=== PATIENT | male | born 1980 | race Two or more races ===

== ENCOUNTER 2019-09-22 23:46 | Emergency (ER) | payer SELFPAY ==
[2019-09-23 01:43] LABS: APPEARANCE,URINE CLEAR; BILIRUBIN,URINE NEGATIVE (NEGATIVE); COLOR,URINE YELLOW; GLUCOSE, URINE NEGATIVE (NEGATIVE); KETONES,URINE NEGATIVE (NEGATIVE); LEUKOCYTE ESTERASE,URINE NEGATIVE (NEGATIVE); NITRITE,URINE NEGATIVE (NEGATIVE); PROTEIN,URINE NEGATIVE (NEGATIVE); URINE SPECIFIC GRAVITY 1.014; UROBILINOGEN,URINE NEGATIVE mg/dL (<2.0)
[2019-09-23] MEDS ORDERED: NAPROXEN 250 MG TABLET PO ONE (02:02)
--- NOTE | 2019-09-23 02:33 | ER Document Report ---
Entered by TELMA MEDELLIN SCRIBE 09/23/19 0213 Acting as scribe for:SWATHI MUSTAFA DO ED GI/ - General Chief Complaint: Groin Pain Stated Complaint: GROIN PAIN/FLANK PAIN/PAIN URINATING Time Seen by Provider: 09/23/19 01:36 Primary Care Provider: RADHA NOVOA MD [CHRIS SONI] - Follow up as needed Mode of Arrival: Ambulatory Information source: Patient, Emergency Med Personnel Notes: This 38 year old male patient with no significant past medical history presents to the ED today with complaints of bilateral groin pain for the past x1 month that has been worse for the past x2 days. Via patient access, patient states that the pain radiated to his lower back and rates his pain 5/5. Patient also reports urinary frequency, but denies hematuria, dysuria, or darker-colored urine, history of kidney stones. Patient states the pain is exacerbated when he strains to defecate or cough. Patient states that he is concerned about his p rostate due to his age. Patient also reports dry throat and hearing a soft echo. Patient notes that he does heavy lifting in his job. Patient denies fever. TRAVEL OUTSIDE OF THE [place] IN LAST 30 DAYS: No - Related Data Allergies/Adverse Reactions: No Known Allergies Allergy (Unverified 09/23/19 01:03) Past Medical History - General Information source: Patient - Social History Smoking Status: Never Smoker Cigarette use (# per day): No Chew tobacco use (# tins/day): No Smoking Education Provided: No Frequency of alcohol use: None Drug Abuse: None Family History: Reviewed & Not Pertinent Patient has suicidal ideation: No Patient has homicidal ideation: No - Medical History Medical History: Negative Past Surgical History: Reports: None Review of Systems - Review of Systems Constitutional: See HPI. denies: Fever EENT: See HPI, Other - Dry throat Cardiovascular: No symptoms reported Respiratory: No symptoms reported Gastrointestinal: No symptoms reported Genitourinary: See HPI, Frequency. denies: Burning, Dysuria, Hematuria Male Genitourinary: See HPI, Other - Bilateral groin pain. denies: Testicular pain Musculoskeletal: See HPI, Back pain Skin: No symptoms reported Hematologic/Lymphatic: No symptoms reported Neurological/Psychological: No symptoms reported -: Yes All other systems reviewed and negative Physical Exam - Vital signs Vitals: Temp Pulse Resp BP Pulse Ox 98.3 F 85 16 130/82 H 97 09/22/19 23:51 09/22/19 23:51 09/22/19 23:51 09/22/19 23:51 09/22/19 23:51 - General General appearance: Appears well, Alert In distress: None - HEENT Head: Normocephalic, Atraumatic Eyes: Normal Pupils: PERRL - Respiratory Respiratory status: No respiratory distress Chest status: Nontender Breath sounds: Normal Chest palpation: Normal - Cardiovascular Rhythm: Regular Heart sounds: Normal auscultation Murmur: No - Abdominal Inspection: Normal Distension: No distension Bowel sounds: Normal Tenderness: Nontender - Abdomen soft Organomegaly: No organomegaly - Genitourinary Notes: Penis is uncircumcised. Testicles are descended bilaterally. No testicular tenderness or pain with palpation. No hernia palpable. Mild perineal pain. No evidence of redness or infection to groin. - Back Back: Normal, Nontender - Extremities General upper extremity: Normal inspection General lower extremity: Normal inspection - Neurological Neuro grossly intact: Yes - Psychological Associated symptoms: Normal affect, Normal mood - Skin Skin Temperature: Warm Skin Moisture: Dry Skin Color: Normal Course - Vital Signs Vital signs: Temp Pulse Resp BP Pulse Ox 98.4 F 80 16 130/80 H 97 09/23/19 02:33 09/23/19 02:33 09/23/19 02:33 09/23/19 02:33 09/23/19 02:33 - Laboratory Laboratory results interpreted by me: 09/23/19 01:05 Urine Blood SMALL H Discharge - Discharge Clinical Impression: Bilateral groin pain Condition: Good Disposition: HOME, SELF-CARE Instructions: Family Physicians / Practices, Low Back Pain ([facility]), Muscle Strain ([facility]) Additional Instructions: Rest, fluids, ice and may alternate ice and heat to your back. See your doctor in follow up or the referral doctor. Please return here for any problems or any concerns. Prescriptions: Doxycycline Hyclate 100 mg PO BID #20 tablet. Naproxen [Naprosyn] 500 mg PO BID #30 tablet Referrals: RADHA NOVOA MD [CHRIS SONI] - Follow up as needed I personally performed the services described in the documentation, reviewed and edited the documentation which was dictated to the scribe in my presence, and it accurately records my words and actions.
[2019-09-23 02:34] VITALS: BP 130/80
== END 2019-09-23 02:33 | disposition home or self-care (01) ==
LOC: ER 23:46
DX: R10.31 Right lower quadrant pain (principal); R10.32 Left lower quadrant pain; R30.9 Painful micturition, unspecified; M54.5 Low back pain; R35.0 Frequency of micturition; J39.2 Other diseases of pharynx
CPT/HCPCS: 81001; 82962; 99283